=== PATIENT | male | born 1965 | race Caucasian/White ===

== ENCOUNTER 2024-08-22 10:56 | Outpatient (CLI) | payer MEDICARE, MEDICAID, SELFPAY ==
--- OUTSIDE RECORDS SUMMARY | 2024-08-22 11:34 | XMS_ITS | Referral Summary ---
Author Organization [facility] al Address [address] [place] [address] Care Team Providers Care Silk Hanger Name Role Phone Nazario Estrada Hernan Primary Care Provider [phone] Allergies Active Allergy Reactions Criticality Noted Date Comments Adhesive Tape-Silicones Clindamycin Other (See comments) Low 01/20/2024 Kidney failure per patient Gabapentin Stomach upset Low Cramps Medications amiodarone (PACERONE) 200 mg tablet Take 0.5 tablets (100 mg total) by mouth daily Active HYDROcodone-madhu taminophen (NORCO) 5-325 mg per tablet Take 1 tablet by mouth every 6 (six) hours as needed 01/13/2024 Active lisinopriL (PRINIVIL,ZESTR IL) 40 mg tablet Take 1 tablet (40 mg total) by mouth daily Active torsemide (DEMADEX) 20 mg tablet Take 3 tablets (60 mg total) by mouth daily 06/11/2016 Active Active Problems Problem Noted Date Diagnosed Date Warthin's tumor 02/05/2024 Parotid mass 01/20/2024 Chronic diastolic heart failure 08/07/2016 Atrial fibrillation 06/04/2016 Palpitations 06/04/2016 Ventricular hypertrophy 06/04/2016 Chest pain 06/04/2016 Shortness of breath 06/04/2016 Hyperlipidemia 06/04/2016 Diabetes mellitus 06/04/2016 Diastolic dysfunction 06/04/2016 Social History Tobacco Use Types Packs/Day Years Used Date Smoking Tobacco: Former Tobacco Cessation:Counseling Given: Not Answered Personal Safety Answer Date Recorded Getting School Help Needed Not on file 01/11 Sex and Gender Information Value Date Recorded Sex Assigned at Not on file Legal Sex Male 10:14 AM CDT Gender Identity Not on file Sexual Orientation Not on file Last Filed Vital Signs Vital Sign Reading Time Taken Comments Blood Pressure 145/76 01/20/2024 9:05 AM CDT Pulse 82 01/20/2024 9:05 AM CDT Temperature - - Respiratory Rate 18 01/20/2024 9:05 AM CDT Oxygen Saturation 94% 01/20/2024 9:05 AM CDT Inhaled Oxygen Concentration - - Weight 158.7 kg (349 lb 12.8 oz) 01/20/2024 9:05 AM CDT Height 188 cm (6' 2 ) 08/07/2016 12:47 PM CDT Body Mass Index 44.91 08/07/2016 12:47 PM CDT Plan of Treatment Not on file Insurance [facility] MEDICARE ADVANTAGE IDPA [facility] MEDICARE ADVANTAGE IDPA Care Teams Silk Hanger Relationship Specialty Start Date End Date Nazario Estrada DO [address] [place] [address] PCP - General 07/25/16
--- OUTSIDE RECORDS SUMMARY | 2024-08-22 11:34 | XMS_ITS | Clinical Summary ---
Author Organization [facility] Address [address] [place] [address] Care Team Providers Care Linoleum Floor Installer Name Role Phone Nazario Estrada Primary Care Provider [phone] Allergies Active Allergy Reactions Criticality Noted Date [...] 06/04/2016 Diabetes mellitus 06/04/2016 Diastolic dysfunction 06/04/2016 Family History Medical History Relation Name Comments Brain cancer Brother Lung cancer Brother Hypertension Sister Family history of hypertension - (Added by TW Conv) Relation Name Status Comments Brother Sister Social History Tobacco Use Types Packs/Day Years Used Date Smoking Tobacco: Former Tobacco Cessation:Counseling Given: Not Answered Personal Safety Answer Date Recorded Getting School Help Needed Not on file 01/11 Sex and Gender Information Value Date Recorded Sex Assigned at Not on file Legal Sex Male 10:14 AM CDT Gender Identity Not on file Sexual Orientation Not on file Obstetrics History Last Filed Vital Signs Vital Sign Reading [...] 08/07/2016 12:47 PM CDT Plan of Treatment Health Maintenance Due Date Last Done Comments Albumin Creatinine Ratio, Urine 1966 Colon Cancer Screening-Colonoscopy 1966 Depression Screening 1966 Hemoglobin A1C 1966 Hepatitis C Screening 1966 Prostate Cancer Screening-PSA 1966 eGFR 1966 Dilated Eye Exam 1966 Foot Exam 1966 DTaP/Tdap/Td Vaccine (1 - Tdap) 1977 Hepatitis B Screening 1984 Regular Well Visit/Exam 18-64 1984 Pneumococcal vaccine <65 (1 of 2 - PCV) 1985 Zoster Vaccine (1 of 2) 2016 Lipid Panel 06/21/2023 06/20/2022 Influenza Vaccine (#1) 2023 Insurance [facility] MEDICARE ADVANTAGE IDPA [facility] [address] IDPA Care Teams Linoleum Floor Installer Relationship Specialty Start Date End Date Nazario Estrada DO [address] [place] [address] PCP - General 07/25/16
--- OUTSIDE RECORDS SUMMARY | 2024-08-22 11:34 | XMS_ITS | Encounter Summary ---
Author Organization [facility] Address [address] [place] [address] Care Team Providers Care Eeler Name Role Phone Hernan Estrada MD Primary Care Provider [phone] Tiffanie Singletary MD Unavailable Gian Suh MD Unavailable Korey Aragon MD Unavailable [phone] Amador Rina [facility] Unavailable [phone] Hernan Estrada MD Primary Care Provider [phone] Anna Muse MD Unavailable Encounter Details Date Type Department Care Team (Late st Contact Info) Description 06/20/2017 Abstract [facility] CONVERSION [address] [place] [address] , Generic Conversion, Social History Tobacco Use Types Packs/Day Years Used Date Smoking Tobacco: Former Cigarettes 2 20 Smokeless Tobacco: Current Chew Alcohol Use Standard Drinks/Week Comments Yes 0 (1 standard drink = 0.6 oz pur e alcohol) occasional Sex and Gender Information Value Date Recorded Sex Assigned at Male 06/07/2024 9:14 AM CHIEF GAUGER Legal Sex Male 11:41 AM CDT Gender Identity Not on file Sexual Orientation Not on file Occupation Industry Job Start Date Job End Date Not on file Not on file Not on file Not on file documented as of this encounter Plan of Treatment Upcoming Encounters Date Type Department Care Team (Latest Contact Info) Description 10/13/2024 1:30 AM CDT Allied Health/Nurse Visit [facility] eld [address] [place] [phone] Tiffanie Singletary MD [address] [place] [address] 11/28/2024 8:00 AM CDT Appointment [address] [place] [address] Anna Muse MD [address] [place] [address] 12/07/2024 8:00 AM CDT Office Visit [facility] [place] [address] Anna Muse MD [address] [place] [address] 12/14/2024 2:30 PM CDT Office Visit [facility] [address] [place] [phone] Britney Stevens NP [address] [facility] [address] [place] [address] 12/14/2024 2:30 PM CDT Allied Health/Nurse Visit [facility] [address] [place] [address] Tiffanie Singletary MD [address] [place] [address] documented as of this encounter Visit Diagnoses Not on filedocumented in this encounter Additional Health Concerns Infection Onset Date Last Indicated Resolved Time COVID-19 Rule Out 11/20/2020 11/20/2020 11/20/2020 7:32 PM CDT documented as of this encounter Care Teams Eeler Relationship Specialty Start Date End Date Hernan Estrada MD [address] [place] [address] PCP - General FAMILY PRACTICE 02/12/16 06/09/19 Hernan Estrada MD [address] [place] [address] PCP - General [facility] PR[facility] 06/10/19 Tiffanie Singletary MD [address] [place] [address] [facility]ann[facility] [employer] CLINICAL CARDIAC ELECTROPHYSIOLOGY 02/12/16 Gian Suh MD [address] [place] [address] Vascular/[employer] [facility] INTERNAL MEDICINE 11/03/16 Korey Aragon MD [address] [place] [address] [employer] CARDIOVASCULAR DISEASE 11/28/16 07/29/23 [facility] [address] [place] [address] NURSE PRACTITIONER 11/22/18 07/29/23 Anna Muse MD [address] [place] [address] Consulting Physician CARDIOVASCULAR DISEASE 07/30/23 documented as of this encounter
--- OUTSIDE RECORDS SUMMARY | 2024-08-22 11:34 | XMS_ITS | Clinical Summary ---
Author Organization [facility] Address [address] [place] [address] Care Team Providers Care Paint Booth Operator Name Role Phone Tiffanie Walls MD Unavailable Gian Suh MD Unavailable Hernan Estrada MD Primary Care Provider [phone] Anna Muse MD Unavailable Allergies Active Allergy Reactions Criticality Noted Date Comments Clindamycin Unknown High 06/10/2019 Kidney failure Gabapentin Other (see comment), GI Upset Low 03/06/2016 Stomach cramps Cramps Statins Myalgias 11/03/2016 Tape Rash Low 06/21/2019 Medications Cinnamon 500 MG capsuleIndicati ons:takes 4 tablets daily Take 500 mg by mouth daily. Active lisinopril 40 MG tablet Take 1 tablet (40 mg total) by mouth daily. 5 05/01/2018 Active amiodarone 200 MG tablet Take 0.5 tablets (100 mg total) by mouth daily. Active torsemide 20 MG tablet Take 3 tablets (60 mg total) by mouth daily. 06/11/2020 Active GNP EARWAX REMOVAL DROPS 6.5 % otic solution INSTILL 2 DROPS INTO EAR CANAL TWO TIMES A DAY FOR NO MORE THAN 4 DAYS 06/22/2023 Active HYDROcodone-madhu taminophen (NORCO) 5-325 MG tablet 1 (one) tablet every 6 hours as needed Active rosuvastatin (CRESTOR) 40 MG tablet Take 1 tablet (40 mg total) by mouth daily. 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/2024 Parotid mass 01/20/2024 Tobacco use 06/01/2023 Morbid (severe) obesity due to excess calories 0 06/10/2022 Body mass index (BMI) 45.0-49.9, adult 3 Right knee pain 09/23/2021 Lumbar radiculopathy 11/12/2020 Varicose veins of both lower extremities with co mplications 06/21/2019 Left leg pain 05/25/2018 Benign hypertension 01/13/2018 JESSI (acute kidney injury) 12/06/2017 Near syncope 12/06/2017 Acute renal failure 12/06/2017 Allergic reaction caused by a drug 12/06/2017 Mixed hyperlipidemia 01/10/2017 Lymphedema 01/06/2017 Chronic diastolic heart failure ([facility] ) 08/07/2016 ICD (implantable cardioverter-defibrillator) in place 07/21/2016 Diabetes mellitus ([facility]) 06/04/2016 Bilateral edema of lower extremity 05/07/2016 Chronic venous insufficiency 05/07/2016 Essential hypertension 05/07/2016 TERESA (obstructive sleep apnea) 05/07/2016 Localized edema 05/05/2016 First degree AV block 03/06/2016 senior care current use of antiarrhythmic drug 04/2015 LVH (left ventricular hypertrophy) 02/26/2016 Ventricular bigeminy 02/26/2016 Ventricular tachycardia, monomorphic ([facility]) 02/04/2016 Venous insufficiency (chronic) (peripheral) Resolved Problems Problem Noted Date Diagnosed Date Resolved Date Atrial fibrillation ([facility]) 02/06/2016 03/13/2016 Encounters Date Type Department Care Team Description 08/10/2024 [facility] [address] [place] [address] Tiffanie Walls MD Appointment Request 06/17/2024 8:01 AM CDT - 06/17/2024 11:59 PM CDT Hospital Encounter [facility] [address] [place] [address] Winebright, Britney K, DAM ATTENDANT Discharge Disposition: Home or Self Care (Routine Discharge) 06/17/2024 Travel 06/15/2024 Telephone [facility] [address] [place] [address] Tiffanie Walls MD Question 06/07/2024 10:00 AM CIVIL PROJECT ENGINEER Office Visit [facility] [address] [place] [address] [phone] Tiffanie Walls MD Follow Up; Cardiac Device Management ([place]) 06/07/2024 9:30 AM CIVIL PROJECT ENGINEER Allied Health/Nurse Visit [facility] [address] [place] [address] [phone] Tiffanie Walls MD In Clinic Device Check 06/07/2024 Travel 06/06/2024 Orders Only [facility] [address] [place] [address] Tiffanie Walls MD 06/03/2024 Telephone [facility] [place] [address] [place] [address] [phone] Tiffanie Walls MD Appointment Reminder from Last 3 Months Immunizations Immunization Administration Dates Next Due Tdap (Boostrix) 02/20/2024 Family History Medical History Relation Comments No Known Problems Father Diabetes Mother Relation Status Comments Father Maternal Grandfather Maternal Grandmother Mother Paternal Grandfather Paternal Grandmother Sister Alive lymphedema Social History Tobacco Use Types Packs/Day Years Used Date Smoking Tobacco: Former Cigarettes 0.3 30 0 05/25/1985 - 05/25/2015 Smokeless Tobacco: Current Chew Tobacco Cessation:Ready to Q uit: Not Asked; Counseling Given: Not Answered Alcohol Use Standard Drinks/Week Comments Yes 0 (1 standard drink = 0.6 oz pur e alcohol) 18 per week Sex and Gender Information Value Date Recorded Sex Assigned at Male 06/07/2024 9:14 AM CIVIL PROJECT ENGINEER Legal Sex Male 11:41 AM CDT Gender Identity Not on file Sexual Orientation Not on file Occupation Industry Job Start Date Job End Date Not on file Not on file Not on file Not on file Last Filed Vital Signs Vital Sign Reading Time Taken Comments Blood Pressure 122/76 06/07/2024 9:38 AM CIVIL PROJECT ENGINEER Pulse 67 06/07/2024 9:38 AM CIVIL PROJECT ENGINEER ekg Temperature 36.6 C (97.8 F) 02/20/2024 6:41 PM CIVIL PROJECT ENGINEER Respiratory Rate 18 06/07/2024 9:38 AM CIVIL PROJECT ENGINEER Oxygen Saturation 94% 06/07/2024 9:38 AM CIVIL PROJECT ENGINEER Inhaled Oxygen Concentration - - Weight 167.1 kg (368 lb 6.4 oz) 06/07/2024 9:38 AM CIVIL PROJECT ENGINEER Height 188 cm (6' 2 ) 06/07/2024 9:38 AM CIVIL PROJECT ENGINEER Body Mass Index 47.3 06/07/2024 9:38 AM CIVIL PROJECT ENGINEER Plan of Treatment Upcoming Encounters Date Type Department Care Team (Latest Contact Info) Description 10/13/2024 1:30 AM CDT Allied Health/Nurse Visit [facility] [address] [place] [phone] Tiffanie Walls MD [address] [place] [phone] 11/28/2024 8:00 AM CDT [facility] [address] [place] [address] Anna Muse MD [address] [place] [address] 12/07/2024 8:00 AM CDT Office Visit [facility] [address] [place] [phone] Anna Muse MD [address] [place], [place] [address] 12/14/2024 2:30 PM CDT Office Visit [facility] [address] [place] [phone] Britney Stevens NP [address] [facility]. [address] [place] [address] 12/14/2024 2:30 PM CDT [facility] [address] [place] [address] Tiffanie Walls MD [address] [place] [address] Health Maintenance Due Date Last Done Comments Colorectal Cancer Screening Colonoscopy (10 Years) 1966 Kidney Health Evaluation 1966 Annual Physical 1969 Diabetes: Retinopathy Eye Exam 1984 Hepatitis C 1984 Hepatitis B Vaccines (1 of 3 - 19+ 3-dose series) 1985 Pneumococcal Vaccine: 50+ Years (1 of 2 - PCV) 1985 Zoster Vaccines (1 of 2) 2016 Hemoglobin A1C 12/21/2022 06/20/2022, 06/04, 12/22/2019, Additional history exists Lipid Panel 06/21/2023 06/20/2022, 12/05, 12/15/2017, Additional history exists COVID-19 Vaccine ( season) 2023 DTaP, Tdap and Td Vaccines (2 - Td or Tdap) 02/19/2034 02/20/2024 Meningococcal B Vaccine Aged Out No l onger eligible based on patient's age to complete this topic Meningococcal Vaccine Aged Out No ana russel eligible based on patient's age to complete this topic RSV Immunizations Under 20 Months Aged Out No longer eligible based on patient's age to complete this topic Medical Devices Implanted Type Area Platform Man Device Identifier Shelf Expiration Date Model / Serial / Lot Medtronic Dual Chamber Icd Implanted:04/08 by Tiffanie Walls MD (Quantity not on file) ICD [employer] - CARDIAC SURGERY - DIV MEDTRO [id number] / [id number] / Procedures Procedure Name Priority Date/Time Associated Diagnosis Comments THYROID STIM HORMONE TSH Routine 025 8:13 AM CDT intermission coordinator current use of amiodarone HEPATIC FUNCTION PANEL Routine 8:13 AM CDT senior care current use of amiodarone ELECTROCARDIOGRAM (NON MIDMARK ACQUIRED) Routine 06/07/2024 9:39 AM CIVIL PROJECT ENGINEER Ventricular tachycardia, monomorphic (CMS/HCC HHS/HCC) LIPID PANEL Routine 06/20/2022 7:23 AM CDT Diabetes mellitus HEMOGLOBIN, GLYCOSYLATED Routine 023 7:23 AM CDT Diabetes mellitus from Last 3 Months or Most Recently Relevant to Health Maintenance Results * HEPATIC FUNCTION PANEL (06/17/2024 8:13 AM CDT) BILIRUBIN TOTAL S/P/B 0.5 0.2 - 1.0 MG/DL 06/17/2024 9:06 AM CDT [facility] Comment: THIS ASSAY IS NOT RECOMMENDED FOR PATIENTS UNDERGOING TREATMENT WITH ELTROMBOPAG DUE TO THE POTENTIAL FOR FALSELY ELEVATED RESULTS. BILIRUBIN DIRECT S/P/B 0.1 0.0 - 0.2 MG/DL 06/17/2024 9:06 AM CDT [facility] ALKALINE PHOSPHATASE S/P/B 54 45 - 115 U/L 06/17/2024 9:06 AM CDT [facility] AST 23 15 - 37 U/L 06/17/2024 9:06 AM CDT [facility] ALT 47 16 - 63 U/L 06/17/2024 9:06 AM CDT [facility] TOTAL PROTEIN S/P/B 7.8 6.4 - 8.2 G/DL 06/17/2024 9:06 AM CDT [facility] ALBUMIN S/P/B 3.9 3.4 - 5.0 G/DL 06/17/2024 9:06 AM CDT [facility] 06/17/2024 8:13 AM CDT Britney Stevens DAM ATTENDANT LABORATORY Final Resul t Performing Organization Address City/[facility] [place]/[facility] [[email or web address]] Co de Phone Number [facility] [place] [address], * TSH (06/17/2024 8:13 AM CDT) TSH 0.672 0.358 - 3.740 uIU/ML 06/17/2024 9:06 AM CDT [facility] Comment: ASSAY PERFORMED BY CHEMILUMINESCENT IMMUNOASSAY METHODOLOGY USING SIEMENS DIMENSION REAGENT. PATIENT RESULTS DETERMINED BY ASSAYS FROM DIFFERENT MANUFACTURERS AND/OR BY DIFFERENT METHODS MAY NOT BE COMPARABLE. 06/17/2024 8:13 AM CDT Britney Stevens DAM ATTENDANT LABORATORY Final Resul t Performing Organization Address [facility] [place]/[facility] [[email or web address]] Co de Phone Number [facility] [place] [address], * ELECTROCARDIOGRAM (06/07/2024 9:39 AM CIVIL PROJECT ENGINEER) 06/07/2024 9:39 AM CIVIL PROJECT ENGINEER Narrative [facility] - 06/14/2024 3:42 PM CDT [facility] [address] [place] [address] Test Date: 2024-06-07 Pat Name: MELA LEZAMA Department: 105 Room: Gender: Male Hooker On: DEMOND : 1965 Requested By: TIFFANIE WALLS Order Number: [id number] Guille MD: Abdirahman Schafer Measurements Intervals [place] Rate: 67 P: 63 AR: 221 QRS: 73 QRSD: 134 T: 90 QT: 410 QTc: 436 Interpretive Statements SINUS RHYTHM WITH FIRST DEGREE AV BLOCK INTRAVENTRICULAR CONDUCTION DELAY Procedure Note Abdirahman Schafer MD - 06/14/2024 [facility] [address] [place] [address] Test Date: 2024-06-07 Pat Name: MELA LEZAMA Department: 105 Room: Gender: Male [place]er On: DEMOND : 1965 Requested By: TIFFANIE WALLS Order Number: [id number] Reading MD: Abdirahman Schafer Measurements Intervals [place] Rate: 67 P: 63 AR: 221 QRS: 73 QRSD: 134 T: 90 QT: 410 QTc: 436 Interpretive Statements SINUS RHYTHM WITH FIRST DEGREE AV BLOCK INTRAVENTRICULAR CONDUCTION DELAY us Tiffanie Walls MD PROCEDURES-ORDERABLE NO CHARGE F inal Result [facility] * (ABNORMAL) HEMOGLOBIN, GLYCOSYLATED (06/20/2022 7:23 AM CDT) HGB A1C 6.2(H) <5.7 % 06/20/2022 7:40 AM CDT [facility] Comment: 5.7 TO 6.4% INCREASED RISK OF DIABETES > OR = 6.5% CONSISTENT WITH DIABETES PER ADA GUIDELINES ESTIMATED AVG GLUCOSE 131 70 - 140 MG/DL 06/20/2022 7:40 AM CDT [facility] 06/20/2022 7:23 AM CDT us Hernan Estrada MD LABORATORY Final Result Performing Organization Address City/[facility] [place]/ZIP Co de Phone Number [facility] [address] [place] [address] * (ABNORMAL) LIPID PANEL (06/20/2022 7:23 AM CDT) CHOLESTEROL 231(H) <200 MG/DL 06/20/2022 8:02 AM CDT [facility] Comment: THE NATIONAL LIPID ASSOCIATION AND THE NATIONAL CHOLESTEROL EDUCATION PROGRAM (NCEP) HAVE SET THE FOLLOWING GUIDELINES FOR TOTAL CHOLESTEROL IN ADULTS AGES 18 AND UP. DESIRABLE: <200 BORDERLINE HIGH: 200-239 HIGH: > OR = 240 TRIGLYCERIDES 199(H) <150 MG/DL 06/20/2022 8:02 AM CDT [facility] Comment: THE NATIONAL LIPID ASSOCIATION AND THE NATIONAL CHOLESTEROL EDUCATION PROGAM (NCEP) HAVE SET THE FOLLOWING GUIDELINES FOR TRIGLYCERIDES IN ADULTS AGES 18 AND UP. NORMAL: <150 BORDERLINE HIGH: 150 TO 199 HIGH: 200 TO 499 VERY HIGH: >499 HDL 37(L) >39 MG/DL 06/20/2022 8:02 AM CDT [facility] Comment: THE NATIONAL LIPID ASSOCIATION AND THE NATIONAL CHOLESTEROL EDUCATION PROGAM (NCEP) HAVE SET THE FOLLOWING GUIDELINES FOR HDL CHOLESTEROL IN ADULTS AGES 18 AND UP. MALES: >39 FEMALES: >49 LDL-C 154(H) <100 MG/DL 06/20/2022 8:02 AM CDT [facility] Comment: THE NATIONAL LIPID ASSOCIATION AND THE NATIONAL CHOLESTEROL EDUCATION PROGAM (NCEP) HAVE SET THE FOLLOWING GUIDELINES FOR LDL CHOLESTEROL IN ADULTS AGES 18 AND UP. DESIRABLE: <100 ABOVE DESIRABLE: 100 TO 129 BORDERLINE HIGH: 130 TO 159 HIGH: 160 TO 189 VERY HIGH: >189 VLDL CALCULATION 40 MG/DL 06/21/19 8:02 AM CDT [facility] Comment:REFERENCE RANGE NOT ESTABLISHED CHOL/HDL RATIO 6.2 06/20/2022 8:02 AM CDT [facility] Comment:REFERENCE RANGE NOT ESTABLISHED LDL/HDL 4.2 06/20/2022 8:02 AM CDT [facility] Comment:REFERENCE RANGE NOT ESTABLISHED NON HDL CHOLESTEROL 194 MG/DL 06/20/2022 8:02 AM CDT [facility] Comment:REFERENCE RANGE NOT ESTABLISHED 06/20/2022 7:23 AM CDT Hernan Estrada MD LABORATORY Final Result [facility] [address] [place] [address], from Last 3 Months or Most Recently Relevant to Health Maintenance Insurance MEDICAID MEDICAID Member Subscriber Plan / Payer (Ef fective 2018-Present) Name:Mela Lezama Sr. Relation to Subscriber:Self Name:Mela Lezama Sr. Payer ID:Not on file Group ID:Not on file Type:Not on file Address: [address] Advance Directives * Full Code (Latest Code Status on File) Date Activated Date Inactivated Comments 12/06/2017 11:02 PM 12/07/2017 7:53 PM Care Teams Paint Booth Operator Relationship Specialty Start Date End Date Hernan Estrada MD [address] [place] [address] [place] [address] PCP - General FAMILY PRACTICE 06/10/19 Tiffanie Walls MD [address] [place] [address] [place] [facility] CLINICAL CARDIAC ELECTROPHYSIOLOGY 02/12/16 Gian Suh MD [address] [place] [phone] V[facility] INTERNAL MEDICINE 11/03/16 Anna Muse MD [address] [place] [address] Consulting Physician CARDIOVASCULAR DISEASE 07/30/23
--- OUTSIDE RECORDS SUMMARY | 2024-08-22 11:34 | XMS_ITS | Encounter Summary ---
Author Organization [facility] Address [address] [place] [address] Care Team Providers Care Recording Engineer Name Role Phone Hernan Estrada MD Primary Care Provider [phone] Tiffanie Singletary MD Unavailable Gian Suh MD Unavailable Korey Aragon MD Unavailable [phone] Amador Rina [facility] Unavailable [phone] Hernan Estrada MD Primary Care Provider [phone] Anna Muse MD Unavailable Encounter Details Date Type Department Care Team (Late st Contact Info) Description 09/11/2018 Abstract [facility] [address] [place] [id number] , Generic Conversion, Social History Tobacco Use Types Packs/Day Years Used Date Smoking Tobacco: Former Cigarettes 0.3 30 0 05/25/1985 - 05/25/2015 Smokeless Tobacco: Never Chew Alcohol Use Standard Drinks/Week Comments Yes 40 (1 standard drink = 0.6 oz pu re alcohol) Sex and Gender Information Value Date Recorded Sex Assigned at Male 06/07/2024 9:14 AM MANAGER [place] Legal Sex Male 11:41 AM CDT Gender Identity Not on file Sexual Orientation Not on file Occupation Industry Job Start Date Job End Date Not on file Not on file Not on file Not on file documented as of this encounter Plan of Treatment Upcoming Encounters Date Type Department Care Team (Latest Contact Info) Description 10/13/2024 1:30 AM CDT Allied Health/Nurse Visit [facility] [address] [place] [phone] Tiffanie Singletary MD [address] [place] [address] [phone] 11/28/2024 8:00 AM CDT Appointment [address] [place] [address] Anna Muse MD [address] [place], [place] [address] 12/07/2024 8:00 AM CDT Office Visit [facility] [place] [phone] Anna Muse MD [address] [place], [place] [address] 12/14/2024 2:30 PM CDT Office Visit [facility] [address] [place] [phone] Britney Stevens NP [address] [facility] [address] [place] [address] 12/14/2024 2:30 PM CDT Allied Health/Nurse Visit [facility] [address] [place] [address] Tiffanie Singletary MD [address] [place] [address] documented as of this encounter Visit Diagnoses Not on filedocumented in this encounter Additional Health Concerns Infection Onset Date Last Indicated Resolved Time COVID-19 Rule Out 11/20/2020 11/20/2020 11/20/2020 7:32 PM CDT documented as of this encounter Care Teams Recording Engineer Relationship Specialty Start Date End Date Hernan Estrada MD [address] [place] [address] PCP - [facility] 02/12/16 06/09/19 Hernan Estrada MD [address] [place] [place] [address] PCP - [facility] 06/10/19 Tiffanie Singletary MD [address] [place] [phone] [place] Turning Machine Operator CLINICAL CARDIAC ELECTROPHYSIOLOGY 02/12/16 Gian Suh MD [address] [place] [phone] Vascular/Turning Machine Operator INTERNAL MEDICINE 11/03/16 Korey Aragon MD [address] [place] [phone] [place] Turning Machine Operator CARDIOVASCULAR DISEASE 11/28/16 07/29/23 Rina English AGACNP- [address] [place], [place] [phone] NURSE PRACTITIONER 11/22/18 07/29/23 Anna Muse MD [address] [place] [address] [phone] Consulting Physician CARDIOVASCULAR DISEASE 07/30/23 documented as of this encounter
--- OUTSIDE RECORDS SUMMARY | 2024-08-22 11:34 | XMS_ITS | Encounter Summary ---
Author Organization [facility] Address [address] [place] [address] Care Team Providers Care Produce Department Manager Name Role Phone Hernan Estrada MD Primary Care Provider [phone] Tiffanie Singletary MD Unavailable Gian Suh MD Unavailable Korey Aragon MD Unavailable [phone] Amador Rina [facility] Unavailable Hernan Estrada MD Primary Care Provider [phone] Anna Muse MD Unavailable Encounter Details Date Type Department Care Team (Late st Contact Info) Description 02/06/2017 Abstract [facility] [address] [place] [address] Tiffanie Singletary MD [address] [place] [address] Social History Tobacco Use Types Packs/Day Years Used Date Smoking Tobacco: Former Cigarettes 2 20 Smokeless Tobacco: Current Chew Alcohol Use Standard Drinks/Week Comments Yes 0 (1 standard drink = 0.6 oz pur e alcohol) occasional Sex and Gender Information Value Date Recorded Sex Assigned at Male 06/07/2024 9:14 AM CONCESSION STAND ATTENDANT Legal Sex Male 11:41 AM CDT Gender Identity Not on file Sexual Orientation Not on file Occupation Industry Job Start Date Job End Date Not on file Not on file Not on file Not on file documented as of this encounter Plan of Treatment Upcoming Encounters Date Type Department Care Team (Latest Contact Info) Description 10/13/2024 1:30 AM CDT Allied Health/Nurse Visit [facility] [address] [place] [phone] Tiffanie Singletary MD [address] [place] [address] 11/28/2024 8:00 AM CDT Appointment [address] [place] [address] Anna Muse MD [address] [place], [place] [address] 12/07/2024 8:00 AM CDT [facility] [address] [place] [phone] Anna Muse MD [address] [place], [place] [phone] 12/14/2024 2:30 PM CDT Office Visit [facility]d [address] [place] [phone] Britney Stevens, ELPIDIO [address] [facility] [address] [place], [place] [address] 12/14/2024 2:30 PM CDT Allied Health/Nurse Visit [facility]d [address] [place] [address] Tiffanie Singletary MD [address] [place] [address] documented as of this encounter Visit Diagnoses Not on filedocumented in this encounter Additional Health Concerns Infection Onset Date Last Indicated Resolved Time COVID-19 Rule Out 11/20/2020 11/20/2020 11/20/2020 7:32 PM CDT documented as of this encounter Care Teams Produce Department Manager Relationship Specialty Start Date End Date Hernan Estrada MD [address] [place] [phone] PCP - General FAMILY PRACTICE 02/12/16 06/09/19 Hernan Estrada MD [address] [place] [address] PCP - General FAMILY PRACTICE 06/10/19 Tiffanie Singletary MD [address] [place] [phone] [place] Education Director CLINICAL CARDIAC ELECTROPHYSIOLOGY 02/12/16 Gian Suh MD [address] [place] [phone] Vascular/Education Director INTERNAL MEDICINE 11/03/16 Korey Aragon MD [address] [place] [phone] [place] Education Director CARDIOVASCULAR DISEASE 11/28/16 07/29/23 Rina English AGACNP-BC [address] [place] [phone] NURSE PRACTITIONER 11/22/18 07/29/23 Anna Muse MD [address] [place] [address] Consulting Physician CARDIOVASCULAR DISEASE 07/30/23 documented as of this encounter
--- OUTSIDE RECORDS SUMMARY | 2024-08-22 11:34 | XMS_ITS | Encounter Summary ---
Author Organization [facility] Address [address] [place] [address] Care Team Providers Care Foundry Tender Name Role Phone Hernan Estrdaa MD Primary Care Provider [phone] Tiffanie Singletary MD Unavailable Gian Suh MD Unavailable Korey Aragon MD Unavailable [phone] Amador Rina [facility] Unavailable [phone] Hernan Estrada MD Primary Care Provider [phone] Anna Muse MD Unavailable Encounter Details Date Type Department Care Team (Late st Contact Info) Description 12/03/2016 Abstract [facility] [address] [place] [address] Korey Aragon MD [address] [place] [phone] Social History Tobacco Use Types Packs/Day Years Used Date Smoking Tobacco: Former Cigarettes 2 20 Smokeless Tobacco: Current Chew Alcohol Use Standard Drinks/Week Comments Yes 0 (1 standard drink = 0.6 oz pur e alcohol) occasional Sex and Gender Information Value Date Recorded Sex Assigned at Male 06/07/2024 9:14 AM DIAGRAMMER AND SEAMER Legal Sex Male 11:41 AM CDT Gender Identity Not on file Sexual Orientation Not on file Occupation Industry Job Start Date Job End Date Not on file Not on file Not on file Not on file documented as of this encounter Plan of Treatment Upcoming Encounters Date Type Department Care Team (Latest Contact Info) Description 10/13/2024 1:30 AM CDT Allied Health/Nurse Visit [facility] [address] [place] [phone] Tiffanie Singletary MD [address] [place] [phone] 11/28/2024 8:00 AM CDT [address] [place] [address] Anna Muse MD [address] [place] [address] 12/07/2024 8:00 AM CDT [facility] [address] [place] [phone] Anna Muse MD [address] [place], [place] [address] 12/14/2024 2:30 PM CDT Office Visit [facility]d [address] [place] [phone] Britney Stevens, ELPIDIO [address] [facility] [address] [place], [place] [address] 12/14/2024 2:30 PM CDT Allied Health/Nurse Visit [facility] [address] [place] [address] Tiffanie Singletary MD [address] [place] [phone] documented as of this encounter Procedures Procedure Name Priority Date/Time Associated Diagnosis Comments BASIC METABOLIC PANEL Routine 12/01/2016 documented in this encounter Results * BASIC METABOLIC PANEL (12/01/2016) SODIUM S/P/B 142 POTASSIUM S/P/B 4.0 CO2 26 CHLORIDE S/P/B 106 GLUCOSE 166 mg/dL CALCIUM S/P/B 9.6 BUN 18 CREATININE S/P/B 1.1 0.7 - 1.3 B TYPE NATRIURETIC PEPTIDE 17 TSH 1.2 MAGNESIUM 2.3 C-REACTIVE PROTEIN 0.48 12/01/2016 [facility] Abstract LABORATORY Final Result documented in this encounter Visit Diagnoses Not on filedocumented in this encounter Additional Health Concerns Infection Onset Date Last Indicated Resolved Time COVID-19 Rule Out 11/20/2020 11/20/2020 11/20/2020 7:32 PM CDT documented as of this encounter Care Teams Foundry Tender Relationship Specialty Start Date End Date Hernan Estrada MD [address] [place] [phone] PCP - General FAMILY PRACTICE 02/12/16 06/09/19 Hernan Estrada MD [address] [place] [phone] PCP - General FAMILY PRACTICE 06/10/19 Tiffanie Singletary MD [address] [place] [phone] [place] Alloy Weigher CLINICAL CARDIAC ELECTROPHYSIOLOGY 02/12/16 Gian Suh MD [address] [place] [phone] Vascular/Alloy Weigher INTERNAL MEDICINE 11/03/16 Korey Aragon MD [address] [place] [phone] [place] [employer] Weigher CARDIOVASCULAR DISEASE 11/28/16 07/29/23 [facility] [address] [place] [address] NURSE PRACTITIONER 11/22/18 07/29/23 Anna Muse MD [address] [place] [address] Consulting Physician CARDIOVASCULAR DISEASE 07/30/23 documented as of this encounter
== END 2024-08-22 10:57 | disposition home or self-care (01) ==
LOC: CHSAUDIO 10:59
PROVIDERS: PCP Family Medicine; Visit Provider Otolaryngology
DX: H66.91 Otitis media, unspecified, right ear (principal); H90.11 Conductive hearing loss, unilateral, right ear, with unrestricted hearing on the contralateral side; H72.01 Central perforation of tympanic membrane, right ear; H90.3 Sensorineural hearing loss, bilateral
CPT/HCPCS: 92557; 92567

== ENCOUNTER 2024-09-28 11:33 | Outpatient (NON) | payer MEDICARE, MEDICAID, SELFPAY | END 2024-09-28 11:34 | disposition home or self-care (01) | LOC: ANHGOSHLAB 11:33 | PROVIDERS: PCP Family Medicine; Visit Provider Otolaryngology | DX: H66.91 Otitis media, unspecified, right ear (principal); H69.91 Unspecified Eustachian tube disorder, right ear | CPT/HCPCS: 87070; 87075; 87077; 87147; 87181; 87186; 87205 ==